=== PATIENT | female | born 1945 | race Caucasian/White ===

== ENCOUNTER 2023-05-23 08:02 | Inpatient (IN) | payer MEDICARE, SELFPAY ==
[~2023-05-23] VITALS: Ht 154.9 cm; Wt 52.7 kg
[2023-05-23] VITALS (16 sets, daily range): BP systolic 107–126; BP diastolic 53–60; TEMP 97.2–98.6; O2SAT 93–100
[2023-05-23] MEDS ORDERED: cefTRIAXone SOD 1GM VIAL IM SCH (09:50)
[2023-05-23 10:57] LABS: HEMATOCRIT 36.1 % (36.0-47.0); HEMOGLOBIN 10.5 g/dl (12.0-15.5); MEAN CORPUSCULAR HEMOGLOBIN 26.4 pg (27.0-33.0); MEAN CORPUSCULAR HGB CONC 29.1 g/dl (32.0-36.5); MEAN CORPUSCULAR VOLUME 90.9 fl (80.0-96.0); RED BLOOD COUNT 3.97 10^6/uL (4.00-5.40); WHITE BLOOD COUNT 24.9 10^3/uL (4.0-10.0)
[2023-05-23] MEDS ORDERED: AZITHROMYCIN INJ 500 MG, VIAL MATE ADAPTER 1 EACH in NS 250 ML IV SCH (11:00)
[2023-05-23] MEDS: IPRATROPIUM 0.5MG/ALBUTEROL 2.5MG INH SOL UD 3ML (DUONEB) NEB SCH ×4 (11:19→22:55)
[2023-05-23] MEDS ORDERED: FURO80VL IV (11:23)
[2023-05-23] MEDS ORDERED: IPRA0.00 NEB (11:23)
[2023-05-23] MEDS ORDERED: VITMTA PO (11:23)
[2023-05-23] MEDS ORDERED: CEFT1INJ5 IV (11:23)
[2023-05-23] MEDS ORDERED: ALBU8.5H INH (11:23)
[2023-05-23] MEDS ORDERED: [UNRECOGNIZED DRUG - CODE] IV (11:23)
[2023-05-23] MEDS ORDERED: METO1TAB32 PO (11:23)
[2023-05-23 11:27] LABS: LDH LACTATE DEHYDROGENASE 507 U/L (120-246)
[2023-05-23 11:28] LABS: CPK CREATINE PHOSPHOKINASE 94 U/L (34-145)
[2023-05-23] MEDS ORDERED: HOME MED LIST COMPLETE! XX SCH (11:30)
[2023-05-23 11:32] LABS: ALBUMIN 2.4 G/DL (3.2-5.2); ALKALINE PHOSPHATASE 199 U/L (46-116); ALT/SGPT 19 U/L (7.0-40); AST/SGOT 35 U/L (<34); BILIRUBIN,TOTAL 0.4 MG/DL (0.3-1.2); BLOOD UREA NITROGEN 32 MG/DL (9-23); CALCIUM LEVEL 7.7 MG/DL (8.3-10.6); CARBON DIOXIDE LEVEL 30 MMOL/L (20-31); CHLORIDE LEVEL 102 MMOL/L (98-107); CHOLESTEROL LEVEL 145 MG/DL (<200); CREATININE FOR GFR 0.77 MG/DL (0.55-1.30); GLOMERULAR FILTRATION RATE > 60.0 (>39); GLUCOSE, FASTING 90 MG/DL (74-106); MAGNESIUM LEVEL 1.6 MG/DL (1.8-2.4); PHOSPHORUS LEVEL 4.5 MG/DL (2.4-5.1); POTASSIUM SERUM 4.5 MMOL/L (3.5-5.1); SODIUM LEVEL 143 MMOL/L (136-145); TRIGLYCERIDES LEVEL 260 MG/DL (<150)
[2023-05-23 11:38] LABS: ABG BASE EXCESS 1.3 (-2.0-2.0); ABG HCO3 28.9 MMOL/L (22.0-26.0); ABG O2 SATURATION 98.1 % (95.0-99.0); ABG PARTIAL PRESSURE O2 115.9 mmHg (75.0-100.0); ABG STANDARD HCO3 25.7 MMOL/L. (22.0-26.0); ABG TOTAL CO2 30.8 MMOL/L (23.0-31.0); ABG pH (ARTERIAL) 7.295 UNITS (7.350-7.450)
[2023-05-23 11:41] LABS: ABG PARTIAL PRESSURE CO2 60.8 mmHg (35.0-45.0)
[2023-05-23] MEDS ORDERED: cefTRIAXone SOD 1 GM in D5W MINI-BAG PLUS 50 ML IV SCH (12:00)
[2023-05-23 12:15] LABS: PLATELET COUNT, AUTOMATED 91 10^3/uL (150-450)
[2023-05-23] MEDS: methylPREDNISolone 125MG 2ML VIAL IV SCH ×2 (12:29→18:51)
[2023-05-23] MEDS: ENOXAPARIN 40MG/0.4ML SYRINGE (J1650 PER 10MG) SC SCH (12:29)
[2023-05-23 14:25] LABS: ABG BASE EXCESS -2.5 (-2.0-2.0); ABG HCO3 23.3 MMOL/L (22.0-26.0); ABG O2 SATURATION 95.9 % (95.0-99.0); ABG PARTIAL PRESSURE CO2 44.5 mmHg (35.0-45.0); ABG PARTIAL PRESSURE O2 83.1 mmHg (75.0-100.0); ABG STANDARD HCO3 22.3 MMOL/L. (22.0-26.0); ABG TOTAL CO2 24.7 MMOL/L (23.0-31.0); ABG pH (ARTERIAL) 7.337 UNITS (7.350-7.450)
[2023-05-23] MEDS ORDERED: MAG SULF 1GM/100ML (MAG RUN) 1 GM in IV 1 EA IV ONE (16:00)
[2023-05-23] MEDS: CelecoXIB (CeleBREX) 100 MG CAP PO SCH (21:20)
[2023-05-23] MEDS: FAMOTIDINE 20 MG TAB PO SCH (21:20)
[2023-05-24] VITALS: BP 117/57; TEMP 98.2; O2SAT 98
[2023-05-24] MEDS: methylPREDNISolone 125MG 2ML VIAL IV SCH (03:51)
[2023-05-24 04:00] VITALS: BP 115/57; TEMP 97.6; O2SAT 94
[2023-05-24] MEDS: IPRATROPIUM 0.5MG/ALBUTEROL 2.5MG INH SOL UD 3ML (DUONEB) NEB SCH ×4 (04:15→19:12)
[2023-05-24 05:09] LABS: HEMATOCRIT 34.6 % (36.0-47.0); HEMOGLOBIN 10.2 g/dl (12.0-15.5); MEAN CORPUSCULAR HEMOGLOBIN 26.9 pg (27.0-33.0); MEAN CORPUSCULAR HGB CONC 29.5 g/dl (32.0-36.5); MEAN CORPUSCULAR VOLUME 91.3 fl (80.0-96.0); PLATELET COUNT, AUTOMATED 101 10^3/uL (150-450); RED BLOOD COUNT 3.79 10^6/uL (4.00-5.40); WHITE BLOOD COUNT 14.3 10^3/uL (4.0-10.0)
[2023-05-24 05:39] LABS: ABG HCO3 26.9 MMOL/L (22.0-26.0); ABG O2 SATURATION 97.5 % (95.0-99.0); ABG PARTIAL PRESSURE CO2 54.7 mmHg (35.0-45.0); ABG PARTIAL PRESSURE O2 100.6 mmHg (75.0-100.0); ABG STANDARD HCO3 24.5 MMOL/L. (22.0-26.0); ABG TOTAL CO2 28.5 MMOL/L (23.0-31.0); ABG pH (ARTERIAL) 7.309 UNITS (7.350-7.450)
[2023-05-24] MEDS: cefTRIAXone SOD 1 GM in D5W MINI-BAG PLUS 50 ML IV SCH (06:01)
[2023-05-24 06:56] LABS: ALBUMIN 2.2 G/DL (3.2-5.2); ALKALINE PHOSPHATASE 131 U/L (46-116); ALT/SGPT 16 U/L (7.0-40); AST/SGOT 16 U/L (<34); ATYPICAL LYMPH 2 % (0-5); BILIRUBIN,TOTAL 0.3 MG/DL (0.3-1.2); BLOOD UREA NITROGEN 33 MG/DL (9-23); CALCIUM LEVEL 7.8 MG/DL (8.3-10.6); CARBON DIOXIDE LEVEL 26 MMOL/L (20-31); CHLORIDE LEVEL 104 MMOL/L (98-107); CREATININE FOR GFR 0.63 MG/DL (0.55-1.30); GLOMERULAR FILTRATION RATE > 60.0 (>39); GLUCOSE, FASTING 144 MG/DL (74-106); HYPOCHROMASIA 1+; LYMPHOCYTES 7 % (16-44); MAGNESIUM LEVEL 1.8 MG/DL (1.8-2.4); MONOCYTES 9 % (0-5); NEUTROPHILS 82 % (28-66); POTASSIUM SERUM 4.7 MMOL/L (3.5-5.1); SODIUM LEVEL 142 MMOL/L (136-145); TOTAL PROTEIN 5.5 G/DL (5.7-8.2)
[2023-05-24 06:57] LABS: PLATELET ESTIMATE NORMAL (NORMAL)
[2023-05-24 08:00] VITALS: BP 123/59; TEMP 97.5; O2SAT 94
[2023-05-24] MEDS: CelecoXIB (CeleBREX) 100 MG CAP PO SCH ×2 (09:54→21:00)
[2023-05-24] MEDS: ENOXAPARIN 40MG/0.4ML SYRINGE (J1650 PER 10MG) SC SCH (09:54)
[2023-05-24] MEDS: predniSONE 20 MG TAB PO SCH (09:54)
[2023-05-24] MEDS ORDERED: FUROSEMIDE 40MG/4ML VIAL IV ONE (11:05)
[2023-05-24 12:00] VITALS: BP 132/58; TEMP 98.1; O2SAT 90
[2023-05-24] MEDS: AZITHROMYCIN 250MG TABLET PO SCH (12:45)
[2023-05-24] MEDS: METOPROLOL SUCC *XL* 25MG TAB (TopROL *XL*) PO SCH (12:45)
[2023-05-24 16:00] VITALS: BP 119/61; TEMP 98.7; O2SAT 94
[2023-05-24 20:00] VITALS: BP 113/59; TEMP 97.6; O2SAT 98
[2023-05-24] MEDS: FAMOTIDINE 20 MG TAB PO SCH (21:00)
[2023-05-25] VITALS (7 sets, daily range): BP systolic 112–159; BP diastolic 57–87; TEMP 97.2–98.9; O2SAT 92–100
[2023-05-25] MEDS: IPRATROPIUM 0.5MG/ALBUTEROL 2.5MG INH SOL UD 3ML (DUONEB) NEB SCH ×4 (01:08→20:01)
[2023-05-25 06:01] LABS: HEMATOCRIT 30.6 % (36.0-47.0); HEMOGLOBIN 9.3 g/dl (12.0-15.5); MEAN CORPUSCULAR HEMOGLOBIN 26.9 pg (27.0-33.0); MEAN CORPUSCULAR HGB CONC 30.4 g/dl (32.0-36.5); MEAN CORPUSCULAR VOLUME 88.4 fl (80.0-96.0); PLATELET COUNT, AUTOMATED 125 10^3/uL (150-450); RED BLOOD COUNT 3.46 10^6/uL (4.00-5.40); WHITE BLOOD COUNT 19.2 10^3/uL (4.0-10.0)
[2023-05-25] MEDS: cefTRIAXone SOD 1 GM in D5W MINI-BAG PLUS 50 ML IV SCH (06:23)
[2023-05-25 06:29] LABS: BLOOD UREA NITROGEN 35 MG/DL (9-23); CALCIUM LEVEL 8.2 MG/DL (8.3-10.6); CARBON DIOXIDE LEVEL 37 MMOL/L (20-31); CHLORIDE LEVEL 103 MMOL/L (98-107); CREATININE FOR GFR 0.58 MG/DL (0.55-1.30); GLOMERULAR FILTRATION RATE > 60.0 (>39); GLUCOSE, FASTING 125 MG/DL (74-106); POTASSIUM SERUM 3.8 MMOL/L (3.5-5.1); SODIUM LEVEL 145 MMOL/L (136-145)
[2023-05-25] MEDS: predniSONE 20 MG TAB PO SCH (08:31)
[2023-05-25] MEDS: CelecoXIB (CeleBREX) 100 MG CAP PO SCH ×2 (08:31→20:06)
[2023-05-25] MEDS: AZITHROMYCIN 250MG TABLET PO SCH (08:31)
[2023-05-25] MEDS: METOPROLOL SUCC *XL* 25MG TAB (TopROL *XL*) PO SCH (08:32)
[2023-05-25] MEDS: ENOXAPARIN 40MG/0.4ML SYRINGE (J1650 PER 10MG) SC SCH (08:32)
[2023-05-25] MEDS: FUROSEMIDE 40MG/4ML VIAL IV SCH ×2 (08:32→16:09)
[2023-05-25 11:39] LABS: PROCALCITONIN 6.18 ng/ml
[2023-05-25] MEDS: FAMOTIDINE 20 MG TAB PO SCH (20:06)
[2023-05-26] VITALS (7 sets, daily range): BP systolic 109–137; BP diastolic 54–63; TEMP 97.3–98.8; O2SAT 93–97
[2023-05-26] MEDS: IPRATROPIUM 0.5MG/ALBUTEROL 2.5MG INH SOL UD 3ML (DUONEB) NEB SCH ×4 (01:30→19:49)
[2023-05-26 05:16] LABS: HEMATOCRIT 35.1 % (36.0-47.0); HEMOGLOBIN 10.5 g/dl (12.0-15.5); MEAN CORPUSCULAR HEMOGLOBIN 26.9 pg (27.0-33.0); MEAN CORPUSCULAR HGB CONC 29.9 g/dl (32.0-36.5); PLATELET COUNT, AUTOMATED 179 10^3/uL (150-450); WHITE BLOOD COUNT 11.5 10^3/uL (4.0-10.0)
[2023-05-26] MEDS: cefTRIAXone SOD 1 GM in D5W MINI-BAG PLUS 50 ML IV SCH (05:22)
[2023-05-26 05:53] LABS: ALBUMIN 2.6 G/DL (3.2-5.2); ALKALINE PHOSPHATASE 99 U/L (46-116); ALT/SGPT 15 U/L (7.0-40); AST/SGOT 8 U/L (<34); BILIRUBIN,TOTAL 0.5 MG/DL (0.3-1.2); BLOOD UREA NITROGEN 33 MG/DL (9-23); CALCIUM LEVEL 8.9 MG/DL (8.3-10.6); CARBON DIOXIDE LEVEL > 40.0 MMOL/L (20-31); CHLORIDE LEVEL 100 MMOL/L (98-107); CREATININE FOR GFR 0.61 MG/DL (0.55-1.30); GLOMERULAR FILTRATION RATE > 60.0 (>39); GLUCOSE, FASTING 83 MG/DL (74-106); SODIUM LEVEL 145 MMOL/L (136-145); TOTAL PROTEIN 5.9 G/DL (5.7-8.2)
[2023-05-26] MEDS: predniSONE 20 MG TAB PO SCH (08:35)
[2023-05-26] MEDS: FUROSEMIDE 40 MG TAB PO SCH (08:35)
[2023-05-26] MEDS: ENOXAPARIN 40MG/0.4ML SYRINGE (J1650 PER 10MG) SC SCH (08:35)
[2023-05-26] MEDS: AZITHROMYCIN 250MG TABLET PO SCH (08:35)
[2023-05-26] MEDS: CelecoXIB (CeleBREX) 100 MG CAP PO SCH ×2 (08:36→19:43)
[2023-05-26] MEDS: METOPROLOL SUCC *XL* 25MG TAB (TopROL *XL*) PO SCH (08:36)
[2023-05-26] MEDS ORDERED: ALBUTEROL SULFATE 2.5MG/0.5ML INH NEB SOLN NEB PRN (19:25)
[2023-05-26] MEDS ORDERED: methylPREDNISolone 125MG 2ML VIAL IV ONE (19:25)
[2023-05-26] MEDS: FAMOTIDINE 20 MG TAB PO SCH (19:43)
[2023-05-27] MEDS: IPRATROPIUM 0.5MG/ALBUTEROL 2.5MG INH SOL UD 3ML (DUONEB) NEB SCH ×2 (01:01→07:19)
[2023-05-27] MEDS: cefTRIAXone SOD 1 GM in D5W MINI-BAG PLUS 50 ML IV SCH (05:09)
[2023-05-27 05:34] LABS: HEMATOCRIT 35.4 % (36.0-47.0); HEMOGLOBIN 10.6 g/dl (12.0-15.5); MEAN CORPUSCULAR HGB CONC 29.9 g/dl (32.0-36.5); MEAN CORPUSCULAR VOLUME 90.1 fl (80.0-96.0); PLATELET COUNT, AUTOMATED 227 10^3/uL (150-450); RED BLOOD COUNT 3.93 10^6/uL (4.00-5.40); WHITE BLOOD COUNT 14.7 10^3/uL (4.0-10.0)
[2023-05-27 06:00] VITALS: BP 132/61; TEMP 98.1; O2SAT 95
[2023-05-27 06:05] LABS: ALBUMIN 2.7 G/DL (3.2-5.2); ALKALINE PHOSPHATASE 93 U/L (46-116); ALT/SGPT 17 U/L (7.0-40); AST/SGOT 9 U/L (<34); BILIRUBIN,TOTAL 0.5 MG/DL (0.3-1.2); BLOOD UREA NITROGEN 24 MG/DL (9-23); CALCIUM LEVEL 8.4 MG/DL (8.3-10.6); CARBON DIOXIDE LEVEL 39 MMOL/L (20-31); CHLORIDE LEVEL 100 MMOL/L (98-107); CREATININE FOR GFR 0.55 MG/DL (0.55-1.30); GLOMERULAR FILTRATION RATE > 60.0 (>39); GLUCOSE, FASTING 134 MG/DL (74-106); POTASSIUM SERUM 4.1 MMOL/L (3.5-5.1); SODIUM LEVEL 145 MMOL/L (136-145); TOTAL PROTEIN 6.1 G/DL (5.7-8.2)
[2023-05-27 07:21] LABS: PROCALCITONIN 0.83 ng/ml
[2023-05-27] MEDS: ENOXAPARIN 40MG/0.4ML SYRINGE (J1650 PER 10MG) SC SCH (08:57)
[2023-05-27] MEDS: predniSONE 20 MG TAB PO SCH (08:58)
[2023-05-27] MEDS: AZITHROMYCIN 250MG TABLET PO SCH (08:58)
[2023-05-27] MEDS: CelecoXIB (CeleBREX) 100 MG CAP PO SCH (08:58)
[2023-05-27 09:00] VITALS: BP 134/62
[2023-05-27] MEDS: METOPROLOL SUCC *XL* 25MG TAB (TopROL *XL*) PO SCH (09:00)
[2023-05-27] MEDS: FUROSEMIDE 40 MG TAB PO SCH (09:00)
[2023-05-27] MEDS ORDERED: FAMO20TA PO (10:20)
[2023-05-27] MEDS ORDERED: LASI20TA3 PO (10:20)
[2023-05-27] MEDS ORDERED: CEPH500C PO (10:20)
[2023-05-27] MEDS ORDERED: PROB250C PO (10:20)
[2023-05-27] MEDS ORDERED: PRED20TA PO (10:20)
== END 2023-05-27 12:06 | disposition home health service (06) | DRG 193 ==
LOC: M ICU 10:10 → M MSPAV 05-26 18:09
PROVIDERS: ADMIT Internal Medicine Critical Care Medicine; ATTEND Internal Medicine
PROC: 5A09357 Assistance with Respiratory Ventilation, Less than 24 Consecutive Hours, Continuous Positive Airway Pressure (ICD-10-PCS; principal; 2023-05-23)
DX: J18.9 Pneumonia, unspecified organism (principal); J96.21 Acute and chronic respiratory failure with hypoxia; I50.33 Acute on chronic diastolic (congestive) heart failure; J44.1 Chronic obstructive pulmonary disease with (acute) exacerbation; E87.4 Mixed disorder of acid-base balance; N39.0 Urinary tract infection, site not specified; J44.0 Chronic obstructive pulmonary disease with (acute) lower respiratory infection; I11.0 Hypertensive heart disease with heart failure; R00.0 Tachycardia, unspecified; D69.6 Thrombocytopenia, unspecified; K21.9 Gastro-esophageal reflux disease without esophagitis; R74.01 Elevation of levels of liver transaminase levels; Z99.81 Dependence on supplemental oxygen; R91.1 Solitary pulmonary nodule; Z79.899 Other long term (current) drug therapy; Z66 Do not resuscitate

== ENCOUNTER → 2023-06-27 | Outpatient (CLI) | payer MEDICARE ==
[~2023-06-27] MED LIST: ALBU8.5H INH; CEFT1INJ5 IV; CEPH500C PO; FAMO20TA PO; FURO80VL IV; IPRA0.00 NEB; LASI20TA3 PO; METO1TAB32 PO; PRED20TA PO; PROB250C PO; VITMTA PO; [UNRECOGNIZED DRUG - CODE] IV
== END ==
LOC: M PLARAD 12:36
PROVIDERS: ATTEND Student in an Organized Health Care Education/Training Program
DX: R91.8 Other nonspecific abnormal finding of lung field (principal)
CPT/HCPCS: 78815; A9552